=== PATIENT | female | born 1970 | race Caucasian/White ===

== ENCOUNTER 2022-09-02 21:29 | Emergency (ER) | payer OTHER ==
[~2022-09-02] VITALS: Ht 165.1 cm; Wt 77.1 kg
[2022-09-02 21:40] VITALS: BP 125/77
[2022-09-02] MEDS ORDERED: TRAMADOL HCL50 MG PO (21:49)
[2022-09-02] MEDS ORDERED: CLINDAMYCIN HC300 MG PO (21:49)
== END 2022-09-02 21:55 | disposition home or self-care (01) ==
LOC: ED 21:29
DX: R68.84 Jaw pain (principal); Z88.5 Allergy status to narcotic agent

== ENCOUNTER 2025-01-11 12:04 | Emergency (ER) | payer MEDICARE ==
[~2025-01-11] VITALS: Wt 77.6 kg
[~2025-01-11 12:04] MED LIST: CLINDAMYCIN HC300 MG PO; TRAMADOL HCL50 MG PO
[2025-01-11 12:21] VITALS: BP 120/81
[2025-01-11] MEDS ORDERED: AMOX-CLAV 875-1 EACH PO (13:41)
[2025-01-11] MEDS ORDERED: Tdap Vaccine 0.5 ML SYR (Adult Vaccine) IM ONE (13:45)
[2025-01-11] MEDS ORDERED: Bacitracin Zinc 14 GM TUBE T ONE (13:45)
[2025-01-11] MEDS ORDERED: Amoxicillin/Clavulanate Pota 875 MG TAB PO ONE (13:45)
== END 2025-01-11 13:54 | disposition home or self-care (01) ==
LOC: ED 12:04
DX: S01.81XA Laceration without foreign body of other part of head, initial encounter (principal); S80.812A Abrasion, left lower leg, initial encounter; S80.811A Abrasion, right lower leg, initial encounter; S40.812A Abrasion of left upper arm, initial encounter; S40.811A Abrasion of right upper arm, initial encounter; Z88.5 Allergy status to narcotic agent; Z88.8 Allergy status to other drugs, medicaments and biological substances; Z79.899 Other long term (current) drug therapy; W55.03XA Scratched by cat, initial encounter; Y93.89 Activity, other specified; Y92.89 Other specified places as the place of occurrence of the external cause; Y99.8 Other external cause status

== ENCOUNTER 2025-05-13 19:40 | Emergency (ER) | payer OTHER ==
[~2025-05-13] VITALS: Ht 165.1 cm; Wt 81.6 kg
[~2025-05-13 19:40] MED LIST changes: +AMOX-CLAV 875-1 EACH PO
[2025-05-13 20:09] VITALS: BP 139/79
[2025-05-13] MEDS ORDERED: LORazepam 1 MG TAB PO ONE (20:20)
[2025-05-13 20:36] LABS: BASO # 0.1 10*3/uL (0.0-0.1); BASO % 0.7 % (0.0-1.0); EOS # 0.1 10*3/uL (0.0-0.4); EOS % 0.9 % (1.0-4.0); MEAN CELL VOLUME 93.7 fl (81.0-99.0); MEAN CORPUSCULAR HGB 31.8 pg (27.0-31.0); MEAN PLATELET VOLUME 10.4 fl (9.6-12.3); MONO # 0.4 10*3/uL (0.1-1.0); MONO % 5.5 % (3.0-9.0); NEUT # 4.7 10*3/uL (2.3-7.9); NEUT % 66.6 % (47.0-73.0); NUCLEATED RED BLOOD CELL 0.0 % (0.0-0.0); NUCLEATED RED BLOOD CELL 0.0 10*3/uL (0.0-0.0); PLATELET COUNT AUTOMATED 249 10*3/uL (130-400); RED CELL DISTRI WIDTH 12.1 % (0-14.5)
[2025-05-13] MEDS ORDERED: Ondansetron4 MG PO (20:39)
[2025-05-13] MEDS ORDERED: METOPROLOL SUCC25 M2 PO (20:39)
[2025-05-13] MEDS ORDERED: ATORVASTATIN CA20 M1 PO (20:40)
[2025-05-13] MEDS ORDERED: NORTRIPTYLINE10 MG PO (20:40)
[2025-05-13] MEDS ORDERED: PROTONIX40 MG PO (20:40)
[2025-05-13] MEDS ORDERED: RIZATRIPTAN10 MG PO (20:41)
[2025-05-13] MEDS ORDERED: ADDERALL 20 MG20 MG PO (20:42)
[2025-05-13] MEDS ORDERED: REXULTI2 MG PO (20:42)
[2025-05-13] MEDS ORDERED: VISTARIL25 MG PO (20:43)
[2025-05-13] MEDS ORDERED: CLONIDINE0.2 MG PO (20:43)
[2025-05-13 20:54] LABS: BUN 14.0 mg/dl (9-23)
[2025-05-13] MEDS ORDERED: POTASSIUM CHLORIDE 20 MEQ TAB PO ONE (21:10)
== END 2025-05-13 21:42 | disposition home or self-care (01) ==
LOC: ED 19:40
PROVIDERS: Nurse Practitioner Family
DX: F41.9 Anxiety disorder, unspecified (principal); R11.0 Nausea; Z88.8 Allergy status to other drugs, medicaments and biological substances